=== PATIENT | female | born 1995 | race Caucasian/White ===

== ENCOUNTER → 2020-12-18 | Outpatient (CLI) | payer BC ==
[~2020-12-18] MED LIST: JUNEL 1/20 20 M1 TAB; MOTRIN 800800 MG/TAB PO; NATURAL MAGNES200 MG PO; NEXIUM 20MG20 MG PO; PHENERGAN 25 TA25 MG PO; PRENATAL TABLET PO; PROBIOTIC ACID1 EAC3 PO; UNISOM25 MG PO; VITAMIN B-6100 MG
== END ==
LOC: DIA.ED
DX: O24.419 Gestational diabetes mellitus in pregnancy, unspecified control (principal)
CPT/HCPCS: G0108

== ENCOUNTER 2021-02-01 00:02 | Outpatient (CLI) | payer BC ==
[~2021-02-01] VITALS: Ht 167.6 cm; Wt 103.2 kg
[~2021-02-01 00:02] MED LIST changes: -MOTRIN 800800 MG/TAB PO; -NATURAL MAGNES200 MG PO; -PRENATAL TABLET PO; -UNISOM25 MG PO; -VITAMIN B-6100 MG
--- NOTE | 2021-02-01 00:10 | NUR ---
G1 at 39 weeks and 2 days arrives to unit with complaint of contractions every 7 minutes. Pt states contractions are not that strong yet, denies LOF, or vaginal bleeding. Reports good movement. Pt denies headaches, blurry vision, or RUQ pain. Pt oriented to room, bed in low and locked position, call light within reach. Clean gown on. US and toco explained and applied. Vital signs obtained. Admission assessment started. Plan of care reviewed with patient and spouse. SVE /-3, membranes intact, vertex position
[2021-02-01 00:30] VITALS: BP 146/89; PULSE 83; TEMP 97.8
[2021-02-01] MEDS ORDERED: PRENATAL TABLET PO (00:44)
[2021-02-01] MEDS ORDERED: NATURAL MAGNES200 MG PO (00:45)
[2021-02-01] MEDS ORDERED: UNISOM25 MG PO (00:46)
[2021-02-01] MEDS ORDERED: VITAMIN B-6100 MG (00:47)
[2021-02-01 01:00] VITALS: BP 131/85; PULSE 93
[2021-02-01 01:30] VITALS: BP 143/82; PULSE 81
--- NOTE | 2021-02-01 01:45 | NUR ---
SVE unchanged over 1 hour. Discharge instructions reviewed with patient and spouse, verbalized understanding. Pt seen ambulating off unit with spouse.
== END 2021-02-01 01:45 | disposition home or self-care (01) ==
LOC: LDRO 00:02 → LDR 00:10 → LDRO 01:45
DX: O62.9 Abnormality of forces of labor, unspecified (principal); Z3A.39 39 weeks gestation of pregnancy
CPT/HCPCS: OP

== ENCOUNTER 2021-02-03 10:10 | Outpatient (CLI) | payer BC ==
[~2021-02-03] VITALS: Ht 167.6 cm; Wt 103.2 kg
[~2021-02-03 10:10] MED LIST changes: +NATURAL MAGNES200 MG PO; +PRENATAL TABLET PO; +UNISOM25 MG PO; +VITAMIN B-6100 MG
--- NOTE | 2021-02-03 10:25 | NUR ---
Pt arrived on unit with complaints of contractions on and off for the last couple days. Pt denies any leaking of fluid, vaginal bleeding and reports normal movement. EFM and toco monitors started. Vital signs WNL. SVE by this RN . Plan of care for labor assessment reviewed.
[2021-02-03 11:25] VITALS: BP 146/90; PULSE 83; TEMP 98.4
[2021-02-03 11:57] VITALS: BP 132/79; PULSE 82
--- NOTE | 2021-02-03 12:05 | NUR ---
Discharge instructions reviewed with pt and at the bedside. Both verbalized an understanding, agreed with the plan and states no questions or concerns at this time.
== END 2021-02-03 12:10 | disposition home or self-care (01) ==
LOC: LDRO 10:10 → LDR 11:59 → LDRO 12:10
DX: Z34.83 Encounter for supervision of other normal pregnancy, third trimester (principal); Z3A.39 39 weeks gestation of pregnancy
CPT/HCPCS: OP

== ENCOUNTER 2021-02-06 15:15 | Inpatient (IN) | payer BC ==
[2021-02-06] VITALS (24 sets, daily range): BP systolic 110–156; BP diastolic 55–89; PULSE 80–129; TEMP 97.8–98.2
--- NOTE | 2021-02-06 15:45 | NUR ---
@ 1525 PATIENT PRESENTS AMABULATORY TO R5 ACCOMPANIED BY SPOUSE WITH C/O CONTRATIONS THAT STARTED AT 0245 THIS MORNING. PATIENT REPORTS CONTRACTIONS ARE ABOUT EVERY 2-3 MINUTES AND HAVE PROGRESSED IN INTENSITY THROUGHOUT THE DAY. PATIENT DENIES VAGINAL BLEEDING OR LEAKING OF FLUID. REPORTS ACTIVE MOVEMENT. PATIENT STATES SHE WAS HERE 3 DAYS AGO FOR LABOR EVALUATION. HAS APPOINTMENT TOMORROW AND STATES THEY PLAN TO TALK ABOUT INDUCTION AT THAT TIME. @ 1544 SVE PERFORMED, CERVIX 3CM/80%, -2 STATION, VERTEX. FOLLOWING SVE PATIENT STATES CERVIX HAS BEEN 3CM AND 90% FOR 1 WEEK. PATIENT DENIES HEADACHE OR VISUAL DISTURBANCES. STATES SHE PLANS ON AN UNMEDICATED LABOR. REVIEWED PLAN TO MONITOR CONTRACTIONS AND BLOOD PRESSURES AND UPDATE DR CHINO
--- NOTE | 2021-02-06 17:30 | NUR ---
AFTER EDUCATION ON LABORING AT HOME AND REASONS TO RETURN TO THE HOSPITAL, PATIENT AND HER BOTH REQUEST DISCHARGE TO HOME AT THIS TIME.
[2021-02-06 18:59] LABS: BASO # 0.1 (0.0-0.2); BASO % 0.3 % (0.0-2.0); EOS # 0.1 (0.0-0.7); EOS % 0.3 % (0-4.0); GRAN # 15.3 (1.4-6.5); GRAN % 79.8 % (42.2-75.2); HEMATOCRIT 42.3 % (37.0-47.0); HEMOGLOBIN 14.5 g/dl (12.5-16.0); LYMPH # 2.4 (1.2-3.4); LYMPH % 12.6 % (20.0-51.0); MEAN CELL VOLUME 93 fl (80.0-100.0); MEAN CORPUSCULAR HEMOGLOBIN 32 pg (27.0-31.0); MEAN CORPUSCULAR HGB CONC 34 g/dl (33.0-37.0); MEAN PLATELET VOLUME 10.6 fl (7.4-10.4); MONO # 1.2 (0.1-0.6); MONO % 6.3 % (1.7-9.3); PLATELET COUNT 261 K/mm3 (130-400); RED BLOOD COUNT 4.53 M/mm3 (4.10-5.30); REDCELL DISTRIBUTION WIDTH-CV 13.3 % (11.5-14.5)
--- NOTE | 2021-02-06 19:12 | NUR ---
1830 - Report received from AURELIO Atkins. This RN to bedside, pt requesting epidural at this time. Jerrod Pierre CRNA already en route to hospital, will update on arrival. 1840 - 20G IV started in left wrist after 1 attempt. Lactated Ringers infusing to gravity. Admission labs obtained off IV start. Consents reviewed and signed with patient and spouse. 1904 - Toshia Pierre CRNA at bedside. Pt positioned to sitting on edge of bed. Epidural procedure, risks, and benefits reviewed with patient and spouse, verbalized understanding. 1911 - Single shot at this time by Toshia Pierre CRNA. Pt denies any adverse reactions. 0 - Pt positioned to left lateral for comfort. Educated on safety precautions. Call light within reach. Bed in low and locked position. See anesthesia record.
--- NOTE | 2021-02-06 19:50 | NUR ---
Dr. Bonilla at bedside. Artificial rupture of membranes at this time. Large amount of meconium fluid out. SVE . Pt positioned to left lateral with peanut ball for comfort.
--- NOTE | 2021-02-06 21:00 | NUR ---
[id number] recurrent variable and early decelerations noted with contractions. Dr. Bonilla on unit reviewing FHR tracing. Position changes done. 2099 - Dr. Bonilla at bedside. SVE complete/0. 2115 - Pt positioned into footplates and educated on pushing techniques, verbalized understanding. Rivera catheter removed. 100 mL clear yellow urine out. Initial push at this time. 2200 - Pt pushing well with contractions. Recurrent variable decelerations with pushes with spontaneous return to baseline. Dr. Bonilla updated on pushing progress.
--- NOTE | 2021-02-06 23:07 | NUR ---
2220 - FHR baseline increasing to 160 bpm. Maternal temperature 98.2. Continues to have recurrent variable decelerations with pushes with spontaneous return to baseline. Pt continues to push well with contractions. 2300 - FHR continues to have recurrent variable/early decelerations with pushes with spontaneous return to baseline. Large crown with pushes. Dr. Bonilla called to bedside for delivery. 2304 - Dr. Bonilla gowned and gloved at perineum. Nursery RN Cecilia Hernandez at bedside. 2306 - Spontaneous vaginal delivery of viable infant boy. Nuchal cord x 1. Terminal mec at delivery. placed to mothers abdomen. Care of assumed to AURELIO Ching. Cord clamped x [address] Bonilla and cut by FOB. Cord blood obtained. 0 - Spontaneous delivery of intact placenta. Fundus firm at down 1 from umbilicus. Small amount of bleeding. Pitocin started at 333 mL/hr per protocol. 1st degree laceration and bilateral hymenal ring lacerations repaired by Dr. Bonilla. Straight cath at this time, about [address] Bonilla. 2330 - Epidural pump off. Pericare provided. New chux and peripad beneath patient. Pt positioned in bed for comfort. recovery started at this time. See physician delivery note.
[2021-02-07] VITALS (11 sets, daily range): BP systolic 124–155; BP diastolic 58–81; PULSE 82–104; TEMP 97.7–98.3
--- NOTE | 2021-02-07 01:20 | NUR ---
AC BS NOTED TO BE 39 AT THIS TIME. MOTHER INSTUCTED ON PO FEEDING INFANT. TOOK 18MLS WELL. BS RECHECK AT 0250. TOLERATED WELL.
--- NOTE | 2021-02-07 03:00 | NUR ---
Pt able to hold up legs bilt without any difficulty. Fundus firm, bleeding WNL. Pt assisted to EOB. Epidural catheter removed. Pt ambulatory to bathroom. Unable to void. Encouraged to drink plenty of fluids. Pericare explained and completed. Pt ambulatory to PP room and oriented to room. Plan of care explained. Will attempt to void again soon.
[2021-02-08] MEDS ORDERED: MOTRIN 800800 MG/TAB PO (07:13)
[2021-02-08 07:55] VITALS: BP 134/82; PULSE 87; TEMP 98
== END 2021-02-08 15:00 | disposition home or self-care (01) | DRG 807 ==
LOC: LDRO 15:15 → LDR 18:25 → OB 02-07 05:26
PROVIDERS: Student in an Organized Health Care Education/Training Program; ADMIT Obstetrics & Gynecology
PROC: 10E0XZZ Delivery of Products of Conception, External Approach (ICD-10-PCS; principal; 2021-02-06)
PROC: 0KQM0ZZ Repair Perineum Muscle, Open Approach (ICD-10-PCS; 2021-02-06)
PROC: 10907ZC Drainage of Amniotic Fluid, Therapeutic from Products of Conception, Via Natural or Artificial Opening (ICD-10-PCS; 2021-02-06)
PROC: 0UQKXZZ Repair Hymen, External Approach (ICD-10-PCS; 2021-02-06)
DX: O48.0 Post-term pregnancy (principal); Z37.0 Single live birth; Z3A.40 40 weeks gestation of pregnancy; O76 Abnormality in fetal heart rate and rhythm complicating labor and delivery; O99.214 Obesity complicating childbirth; E66.9 Obesity, unspecified; O24.420 Gestational diabetes mellitus in childbirth, diet controlled; O70.0 First degree perineal laceration during delivery
CPT/HCPCS: J2590; J2795; J7120